=== PATIENT | female | born 1960 ===

== ENCOUNTER 2021-06-09 07:55 | Day surgery (SDC) | payer OTHER ==
[~2021-06-09 07:55] MED LIST: INDAPAMIDE1.25 MG PO; LIPITOR20 MG PO
[2021-06-09] MEDS ORDERED: ULTRACET PO (10:16)
[2021-06-09] MEDS ORDERED: RECTICARE30 GM TOP (10:17)
== END 2021-06-09 14:00 | disposition home or self-care (01) ==
LOC: CIR.AMB 07:55
PROVIDERS: ATTEND Surgery
DX: K62.82 Dysplasia of anus (principal); A63.0 Anogenital (venereal) warts